=== PATIENT | male | born 1970 | race African-American/Black ===

== ENCOUNTER 2022-02-19 15:17 | Emergency (ER) | payer MEDICAID ==
[~2022-02-19] VITALS: Ht 182.9 cm; Wt 74.0 kg
[2022-02-19] MEDS ORDERED: AMLODIPINE 10MG TABLET PO ONE (16:30)
[2022-02-19] MEDS ORDERED: HYDROCHLOROTHIAZIDE 12.5MG CAPSULE PO ONE (16:30)
[2022-02-19 16:42] LABS: CHLORIDE 104 mEq/L (98-107)
[2022-02-19 16:43] LABS: BASOPHILS % 0.7 % (0.0-2.0); EOSINOPHILS % 1.6 % (0.0-5.0); HEMATOCRIT. 46.6 % (42.0-52.0); HEMOGLOBIN. 15.8 g/dL (14.0-18.0); LYMPHOCYTES % 41.5 % (20.0-50.0); MEAN CORPUSCULAR HEMOGLOBIN 29.3 pg (28.0-32.0); MEAN CORPUSCULAR VOLUME 86.4 fL (80.0-94.0); MONOCYTES % 7.4 % (2.0-8.0); NEUTROPHILS % 48.8 % (40.0-76.0); PLATELET 239 x1000/uL (130-400); PROTHROMBIN TIME 10.5 sec (9.6-11.0); RED BLOOD CELL COUNT 5.39 mill/uL (4.7-6.1); RED CELL DISTRIBUTION WIDTH 14.2 % (11.6-14.6)
[2022-02-19] MEDS ORDERED: POTASSIUM CHLORIDE 20MEQ/PACKET PO NR (17:00)
[2022-02-19 17:50] VITALS: BP 141/103
[2022-02-19] MEDS ORDERED: HYDR12.54 PO (18:05)
[2022-02-19] MEDS ORDERED: AMLO10TA80 MT (18:05)
[2022-02-19] MEDS ORDERED: ATOR10TA69 PO (18:05)
[2022-02-19] MEDS ORDERED: IBUP-2029 PO (18:05)
== END 2022-02-19 18:30 | disposition home or self-care (01) ==
LOC: ER 15:17
DX: R07.89 Other chest pain (principal); M25.561 Pain in right knee; M25.461 Effusion, right knee; E87.6 Hypokalemia; E78.00 Pure hypercholesterolemia, unspecified; I11.9 Hypertensive heart disease without heart failure; Z87.891 Personal history of nicotine dependence; Z90.49 Acquired absence of other specified parts of digestive tract; Z98.890 Other specified postprocedural states
CPT/HCPCS: 36415; 73562; 80053; 84484; 85025; 99284